=== PATIENT | female | born 1945 | race African-American/Black ===

== ENCOUNTER 2016-12-20 06:18 | Day surgery (SDC) | payer MEDICARE, BC ==
[~2016-12-20] VITALS: Ht 160 cm; Wt 89.8 kg
[~2016-12-20 06:18] MED LIST: ALTACE10 MG PO; AMARYL2 MG OR; AMLODIPINE10 MG PO; ASPIRIN EC325 MG PO; CRESTOR10 MG PO; ELIQUIS5 MG PO; EQ OMEPRAZOLE M20 MG PO; GLIMEPIRIDE2 MG PO; ISOSORBIDE MONO60 MG PO; JANUVIA100 MG OR; LANTUS100 MG/ML SC; LOMOTIL2.5 MG OR; METFORMIN1000 MG PO; METOPROL TAR25 MG PO; PREVACID30 M2 OR; ROSUVASTATIN CA10 MG PO; SIMVASTATIN40 MG PO; SPIRONOLACT25 MG PO; TOPROL XL50 MG OR
[2016-12-20 08:40] VITALS: BP 119/60
== END 2016-12-20 08:47 | disposition home or self-care (01) ==
LOC: ENDO 06:18
PROVIDERS: ATTEND Surgery
PROC: 0DJD8ZZ Inspection of Lower Intestinal Tract, Via Natural or Artificial Opening Endoscopic (ICD-10-PCS; principal; 2016-12-20)
DX: Z12.11 Encounter for screening for malignant neoplasm of colon (principal); K64.4 Residual hemorrhoidal skin tags; K57.30 Diverticulosis of large intestine without perforation or abscess without bleeding; E78.5 Hyperlipidemia, unspecified; I10 Essential (primary) hypertension; E11.9 Type 2 diabetes mellitus without complications; Z86.73 Personal history of transient ischemic attack (TIA), and cerebral infarction without residual deficits

== ENCOUNTER → 2018-04-18 | Outpatient (REF) | payer MEDICARE, BC | END | disposition home or self-care (01) | LOC: CT 10:36 | PROVIDERS: ATTEND Nurse Practitioner Adult Health | DX: R10.9 Unspecified abdominal pain (principal); R19.8 Other specified symptoms and signs involving the digestive system and abdomen ==

== ENCOUNTER 2020-09-30 13:15 | Observation (INO) | payer MEDICARE, BC ==
[~2020-09-30] VITALS: Ht 160 cm; Wt 79.0 kg
--- NOTE | 2020-09-30 13:32 | NUR ---
PATIENT STATES UNDERSTANDING OF CURRENT PPOC AND DENIES ANY FURTHER NEEDS CURRENTLY
[2020-09-30 14:10] LABS: HEMATOCRIT 37.5 % (37.0-47.0); HEMOGLOBIN 12.4 g/dl (12.0-16.0); IMMATURE GRANULOCYTES 0.2 % (0.0-5.0); MEAN CELL VOLUME 92.6 fL CALC (80.0-100.0); MEAN CORPUSCULAR HGB 30.6 pG CALC (26.0-32.0); MEAN CORPUSCULAR HGB CONC 33.1 g/dL CAL (32.0-36.0); NEUT# 4.88 thou/uL (2.00-7.15); RED BLOOD COUNT 4.05 mill/uL (4.20-5.60); RED CELL DISTRI WIDTH 11.9 % (11.5-15.5)
[2020-09-30 14:17] LABS: URINE BLOOD DIPSTICK NEGATIVE (NEGATIVE); URINE COLOR YELLOW; URINE GLUCOSE - DIPSTICK NEGATIVE (NEGATIVE); URINE KETONE TRACE mg/dL (NEGATIVE); URINE LEUK ESTERASE NEGATIVE (NEGATIVE); URINE PROTEIN - DIPSTICK TRACE mg/dL (NEG-TRACE); URINE SPECIFIC GRAVITY >=1.030; URINE UROBILINOGEN - DIPSTICK 0.2 E.U./dL (0.2)
[2020-09-30 14:18] LABS: URINE BILIRUBIN - DIPSTICK SMALL (NEGATIVE)
[2020-09-30 14:19] LABS: URINE NITRITE - DIPSTICK NEGATIVE (Negative)
[2020-09-30 14:31] LABS: ALBUMIN 4.3 g/dL (3.2-5.0); ALKALINE PHOSPHATASE 120 u/l (38-126); AMYLASE 529 u/l (30-110); ANION GAP 12 (6-22 (CALC)); BILIRUBIN, TOTAL 0.8 mg/dL (0.0-1.4); BUN 21 mg/dL (8-23); BUN/CREATININE RATIO 23 (12-20 (CALC)); CARBON DIOXIDE 27 mmol/l (22-30); CHLORIDE 101 mmol/l (95-108); CREATININE 0.9 mg/dL (0.5-1.0); GFR > 60 ML/MIN (>=60 (CALC)); GFR FOR AFR.AMER. > 60 ML/MIN (>=60 (CALC)); POTASSIUM 3.7 mmol/l (3.5-5.1); SODIUM 136 mmol/l (137-146); TOTAL PROTEIN 7.4 g/dL (6.3-8.2)
[2020-09-30 14:32] LABS: ACT PARTIAL THROMBO TIME 23.4 SECONDS (20.0-32.5); PROTHROMBIN TIME 10.2 SECONDS (9.0-12.5)
[2020-09-30 14:50] LABS: LIPASE 6172 u/l (23-300); SGOT/AST 88 u/l (9-36)
--- NOTE | 2020-09-30 17:14 | NUR ---
PATIENT STATES UNDERSTANDING OF OBSERVATION AND AGREES
--- NOTE | 2020-09-30 17:21 | NUR ---
sbar printed to floor
--- NOTE | 2020-09-30 18:03 | NUR ---
CALL TO FLOOR FOR REPORT NO ANSWER, WILL RETURN CALL
--- NOTE | 2020-09-30 18:13 | NUR ---
REPORT CALLED TO [facility]
--- NOTE | 2020-09-30 18:30 | NUR ---
PATIENT TRANSPORTED BY MED/SURG NURSE DUE TO HIGH VOLUME
--- NOTE | 2020-09-30 18:35 | NUR ---
PT ARRIVED TO MED/SURG ROOM 268 IN STABLE CONDITION VIA WHEELCHAIR ACCOMPANIED BY WRITTER;PT A&O X3, ORIENTED TO ROOM AND CALL LIGHT SYSTEM;WT AND VS OBTAINED AT THIS TIME;PT DENIES ANY CURRENT PAIN OR DISCOMFORTS,PAIN SCALE AND REPORTING EDUCATED;EMS #20G TO LAC FLUSHED AND PATENT,NS STARTED @ 125ML/HR,SITE APPEARS HEALTHY;ALLERGY BAND APPLIED TO LEFT ARM;PT DENIES ANY ADDITIONAL NEEDS AT THIS TIME;ENCOURAGED TO CALL FOR ASSISTANCE IF NEEDED;FALL PRECAUTIONS IN PLACE WITH BED IN THE LOWEST POSITION AND CALL LIGHT IN REACH;WILL CONTINUE TO MONITOR
[2020-09-30 18:38] VITALS: BP 149/72
--- NOTE | 2020-09-30 19:01 | NUR ---
REPORT FROM [facility]. ASSUMED PT CARE.
[2020-09-30 19:35] VITALS: BP 124/53
--- NOTE | 2020-09-30 20:27 | NUR ---
PT NOTED RESTING IN BED. ALERT AND ORIENTED X3. NO APPARENT DISTRESS NOTED. IVF INFUSING WITHOUT DIFFICULTY. RESPIRATIONS EVEN AND UNLABORED. PT VERBALIZED SOME URGENCY DUE TO AMOUNT OF IVF, PERIPADS AND MESH UNDERWEAR PROVIDED AT THIS TIME. SKIN INTACT. PT DENIES ANY PAIN OR DISCOMFORT. DISCUSSED POC AND NPO. PT VERBALIZED UNDERSTANDING. NO OTHER CURRENT WANTS OR NEEDS NOTED. CALL LIGHT WITHIN REACH. WILL CONTINUE TO MONITOR.
--- NOTE | 2020-10-01 00:08 | NUR ---
PT RESTING IN BED WITH EYES CLOSED. NO APPARENT DISTRESS NOTED. IVF INFUSING WITHOUT DIFFICULTY. CALL LIGHT WITHIN REACH. WILL CONTINUE TO MONITOR.
--- NOTE | 2020-10-01 02:29 | NUR ---
PT AMBULATED TO BATHROOM WITH STEADY GAIT. NO APPARENT DISTRESS NOTED. PT DENIES ANY PAIN OR DISCOMFORT. NEW BAG OF NS INITIATED. PT BACK INTO BED. CALL LIGHT WITHIN REACH. WILL CONTINUE TO MONITOR.
[2020-10-01 04:05] VITALS: BP 140/72
[2020-10-01 05:50] LABS: ALKALINE PHOSPHATASE 87 u/l (38-126); AMYLASE 198 u/l (30-110); ANION GAP 8 (6-22 (CALC)); BILIRUBIN, TOTAL 0.7 mg/dL (0.0-1.4); BUN 14 mg/dL (8-23); BUN/CREATININE RATIO 19 (12-20 (CALC)); CALCULATED LDLCHOLESTEROL 102 mg/dL (62-129 (CALC)); CARBON DIOXIDE 27 mmol/l (22-30); CHLORIDE 109 mmol/l (95-108); CHOLESTEROL HDL RATIO 4.1 (<4.4 (CALC)); CREATININE 0.7 mg/dL (0.5-1.0); GFR > 60 ML/MIN (>=60 (CALC)); GFR FOR AFR.AMER. > 60 ML/MIN (>=60 (CALC)); HDL CHOLESTEROL 39 mg/dL (>=40); LIPASE 641 u/l (23-300); MAGNESIUM 1.7 mg/dL (1.6-2.3); POTASSIUM 4.1 mmol/l (3.5-5.1); SGOT/AST 93 u/l (9-36); SODIUM 140 mmol/l (137-146); TOTAL TRIGLYCERIDES 100 mg/dl (30-149); VLDL CHOLESTROL 20 mg/dl (0-48 (CALC))
[2020-10-01 05:52] LABS: ALBUMIN 3.2 g/dL (3.2-5.0); TOTAL CHOLESTEROL 161 mg/dl (0-199); TOTAL PROTEIN 5.6 g/dL (6.3-8.2)
--- NOTE | 2020-10-01 06:32 | NUR ---
PT RESTING IN BED WITH EYES CLOSED. NO APPARENT DISTRESS NOTED. RESPIRATIONS EVEN AND UNLABORED. CALL LIGHT WITHIN REACH. WILL CONTINUE TO MONITOR.
[2020-10-01 07:50] VITALS: BP 147/56
--- NOTE | 2020-10-01 08:00 | NUR ---
PT WAS FOUND RESTING IN BEDSIDE CHAIR;PT IS A&O X3;VS AND ASSESSMENT WERE COMPLETED;PT HAS NO REPORTS OF PAIN AT THIS TIME;HEART SOUNDS ARE REGULAR IN RATE AND RHYTHM;LUNG SOUNDS ARE CLEAR;RESPIRATIONS ARE EVEN AND UNLABORED ON RA;#20G IV IN LAC IS RUNNING NS@125ML/HR;IV SITE IS PATENT AND FREE OF COMPLICATIONS;SAFETY PRECAUTIONS IN PLACE;CALL LIGHT WITHIN REACH;BED IN LOWEST POSITION;WILL CONTINUE TO MONITOR.
--- NOTE | 2020-10-01 09:33 | NUR ---
AT BEDSIDE DISCUSSING POC.
--- NOTE | 2020-10-01 11:14 | NUR ---
EMS IV SITE REMOVED TO LAC WITH CATHETER INTACT DUE TO EXPIRATION, NEW #22G STARTED TO RFA ON FIRST ATTEMPT BY THIS WRITTER AND PT TOLERATED WELL;IVF RE-STARTED PER ORDER;PT DENIES ANY ADDITIONAL NEEDS;WILL CONTINUE TO MONITOR
--- NOTE | 2020-10-01 11:33 | NUR ---
PT WAS FOUND RESTING IN BEDSIDE CHAIR;PT HAS NO REPORTS OF PAIN AT THIS TIME; #22G IN RFA IS RUNNING NS @125ML/HR;IV SITE IS FREE OF COMPLICATIONS;SAFETY PRECAUTIONS IN PLACE;CALL LIGHT WITHIN REACH;BED IN LOWEST POSITION;WILL CONTINUE TO MONITOR.
[2020-10-01 14:40] VITALS: BP 109/62
--- NOTE | 2020-10-01 15:58 | NUR ---
PT WAS FOUND RESTING SITTING IN THE BEDSIDE CHAIR;PT HAS NO NEEDS OR COMPLAINTS AT THIS TIME;#22G IV IN RFA IS RUNNING NS @50ML/HR;IV SITE IS FREE OF COMPLICATIONS;SAFETY PRECAUTIONS IN PLACE;CALL LIGHT WITHIN REACH;BED IN LOWEST POSITION;WILL CONTINUE TO MONITOR.
[2020-10-01 20:00] VITALS: BP 99/47
--- NOTE | 2020-10-01 20:03 | NUR ---
PHYSICAL ASSESMENT COMPLETE. PT CURRENTLY DENIES PAIN OR DISCOMFORT. SCHEDULED MEDICATIONS AND PRN MEDICATION ADMINISTERED, SEE E-MAR. PT DENIES ANY NEEDS AT THIS TIME. PLAN OF CARE REVIEWED, PT DENIES QUESTIONS, VERBALIZES UNDERSTANDING. ITEMS WITHIN REACH, BED LOCKED IN LOW POSITION W/ BEDRAILS UP X2. CALL CROOK WITHIN REACH, AGREES TO CALL PRN.
[2020-10-02] VITALS: BP 115/54
--- NOTE | 2020-10-02 00:02 | NUR ---
PT LAYING IN BED WITH EYES CLOSED, APPEARS TO BE SLEEPING, APPEARS COMFORTABLE AND IN NO DISTRESS. RESPIRATIONS REGULAR AND UNLABORED. ITEMS REMAIN WITHIN REACH, CALL CROOK REMAINS WITHIN REACH. BED REMAINS LOCKED AND IN LOW POSITION WITH BEDRAILS UP X2. WILL CONTINUE TO MONITOR.
--- NOTE | 2020-10-02 04:00 | NUR ---
PT RESTING IN BED, NO SIGNS OF DISTRESS NOTED, RESP EVEN AND UNLABORED. PT VOICES NO NEEDS OR COMPLAINTS AT THIS TIME. CALL LIGHT IN REACH, CONTINUE TO MONITOR.
[2020-10-02 04:06] VITALS: BP 139/62
[2020-10-02 05:42] LABS: ALBUMIN 3.4 g/dL (3.2-5.0); ALKALINE PHOSPHATASE 75 u/l (38-126); ANION GAP 9 (6-22 (CALC)); BILIRUBIN, TOTAL 0.7 mg/dL (0.0-1.4); BUN 10 mg/dL (8-23); BUN/CREATININE RATIO 14 (12-20 (CALC)); CARBON DIOXIDE 24 mmol/l (22-30); CHLORIDE 111 mmol/l (95-108); CREATININE 0.7 mg/dL (0.5-1.0); GFR > 60 ML/MIN (>=60 (CALC)); GFR FOR AFR.AMER. > 60 ML/MIN (>=60 (CALC)); LIPASE 269 u/l (23-300); POTASSIUM 3.9 mmol/l (3.5-5.1); SGOT/AST 43 u/l (9-36); SODIUM 140 mmol/l (137-146); TOTAL PROTEIN 5.8 g/dL (6.3-8.2)
--- NOTE | 2020-10-02 07:00 | NUR ---
PT REPORT RECEIVED FROM NIGHT NURSEMYA.
[2020-10-02 07:48] VITALS: BP 162/94
--- NOTE | 2020-10-02 08:00 | NUR ---
PT WAS FOUND EATING BREAKFAST IN BEDSIDE CHAIR;PT IS A&O X3;VS AND ASSESSMENT WERE COMPLETED;PT HAS NO REPORTS OF PAIN AT THIS TIME;HEART SOUNDS ARE REGULAR IN RATE AND RHYTHM;LUNG SOUNDS ARE CLEAR;RESPIRATIONS ARE EVEN AND UNLABORED ON RA;#22G IV IN RFA IS RUNNING NS @50ML/HR;IV SITE IS FREE OF COMPLICATIONS;SAFETY PRECAUTIONS IN PLACE;CALL LIGHT WITHIN REACH;BED IN LOWEST POSITION;WILL CONTINUE TO MONITOR.
--- NOTE | 2020-10-02 10:10 | NUR ---
AND DANILO COREAS ARE AT BEDSIDE DISCUSSING POC WITH PT.
[2020-10-02 11:14] VITALS: BP 118/62
--- NOTE | 2020-10-02 12:00 | NUR ---
PT WAS FOUND IN BEDSIDE CHAIR EATING LUNCH;DISCUSSED DISCHARGE PLANS WITH PT;DISCHARGE PACKET WAS GIVEN TO PT;DISCHARGE INSTRUCTIONS WERE EXPLAINED;PT EXPRESSED UNDERSTANDING AND HAD NO QUESTIONS;SIGNATURE OBTAINED;PT WITH BE TRANSPORTED TO HOME WITH FAMILY.
--- NOTE | 2020-10-02 12:26 | NUR ---
PT IV REMOVED FOR DISCHARGE;CATHETER IS INTACT WITH NO COMPLICATIONS OR ISSUES.
--- NOTE | 2020-10-02 12:53 | NUR ---
Discharge instructions given. Patient verbalizes understanding of same. Discharged in stable condition via Wheelchair to Home with family. All belongings sent with pt. [facility] VIA WHEELCHAIR ACCOMPANIED BY STAFF;ALL PT BELONGINGS WERE SENT WITH PT;PT WILL BE TRANSPORTED HOME WITH FAMILY.
== END 2020-10-02 12:37 | disposition home or self-care (01) ==
LOC: ED 13:15 → ED-I 16:30 → ED 16:49 → MS2 16:50
PROVIDERS: ADMIT Internal Medicine; ATTEND Internal Medicine
DX: K85.90 Acute pancreatitis without necrosis or infection, unspecified (principal); I10 Essential (primary) hypertension; E11.9 Type 2 diabetes mellitus without complications; I48.91 Unspecified atrial fibrillation; Z86.73 Personal history of transient ischemic attack (TIA), and cerebral infarction without residual deficits; Z79.4 Long term (current) use of insulin; Z20.822 Contact with and (suspected) exposure to COVID-19
CPT/HCPCS: S0164